=== PATIENT | male | born 1975 | race Caucasian/White ===

== ENCOUNTER 2016-09-13 18:01 | Emergency (ER) | payer OTHER ==
[~2016-09-13] VITALS: Ht 180.3 cm; Wt 164.2 kg
[~2016-09-13 18:01] MED LIST: ALBUTEROL SULF8.5 GM IH; AUGMENTIN875 MG PO; Aspirin PO; BENADRYL50 MG PO; BENICAR HCT1 TABLE1 PO; BENICAR40 MG PO; BYSTOLIC2.5 MG PO; COREG12.5 M1 PO; HYZAAR 100-21 TABLET PO; INDOMETHACIN25 MG PO; Motrin PO; NAPROXEN500 MG PO; PERCOCET 10/1 TABLET PO; PERCOCET 5/31 TABLET PO; PERCOCET 7.5-31 EACH PO; PHENERGAN-CODE120 ML PO; PREDNISONE20 MG PO; PRILOSEC20 MG PO; REGLAN5 MG PO
[2016-09-13] MEDS ORDERED: MOBIC7.5 MG PO (21:37)
[2016-09-13] MEDS ORDERED: UNABLE TO OBTAIN (22:33)
[2016-09-13 22:35] VITALS: BP 155/93
== END 2016-09-13 22:40 | disposition home or self-care (01) ==
LOC: EME 18:01 → RME 18:01
DX: M70.52 Other bursitis of knee, left knee (principal); I10 Essential (primary) hypertension; M17.12 Unilateral primary osteoarthritis, left knee; E66.01 Morbid (severe) obesity due to excess calories; E78.5 Hyperlipidemia, unspecified; L40.9 Psoriasis, unspecified; F17.200 Nicotine dependence, unspecified, uncomplicated
CPT/HCPCS: 73564; 99281; 99284